=== PATIENT | female | born 1990 | race Caucasian/White ===

== ENCOUNTER 2017-03-21 21:01 | Emergency (ER) | payer MEDICAID ==
[2017-03-21] MEDS ORDERED: IBUPROFEN 600 MG TAB PO ONE (21:16)
[2017-03-21 21:20] VITALS: BP 135/82; PULSE 100; RESP 16; O2SAT 94
--- NOTE | 2017-03-21 21:26 | EDPHY ---
H & P Time Seen by Provider: 03/21/17 21:18 HPI/ROS: CHIEF COMPLAINT: Sore throat, left ear pain HISTORY OF PRESENT ILLNESS: Patient is a 27-year-old female with recurrent strep throat who presents to the emergency department with sore throat and left ear pain for the past 2 days. Her throat pain is worsening. Her pain is bilaterally. She describes it as moderate and worse when she swallows. She states she has foul-smelling breath. Patient denies any cough or shortness of breath. No fevers or chills. No neck pain. Patient describes left ear pain. There has been no discharge. No tenderness or hearing loss. REVIEW OF SYSTEMS: My complete review of systems is negative except as mentioned in the HPI. Past Medical/Surgical History: Includes previous strep throat Past surgical history: Negative Social history: The patient smokes Smoking Status: Former smoker Physical Exam: Vitals noted GENERAL: No acute distress, alert. HEENT: Eyes normal to inspection, no signs of dehydration. The patient has an erythematous posterior pharynx. There is also numerous small white lesions. Uvula is midline. No asymmetry or mass. Patient's TMs are negative bilaterally. NECK: [No thyromegaly, bilateral anterior lymphadenopathy, supple. RESPIRATORY: Clear to auscultation bilaterally, no rales, rhonchi or wheezing. CVS: Regular rate and rhythm, no rubs, murmurs, or gallops. ABDOMEN: Soft, nontender, nondistended, no organomegaly. BACK: Normal to inspection, no CVA tenderness. SKIN: Normal color, no rash, warm, dry. No pallor. EXTREMITIES: No pedal edema, nno joint swelling. NEURO/PSYCH: Alert and oriented, normal mood and affect, normal motor sensory exam. Constitutional: Initial Vital Signs Temperature (C) 36.6 C 03/21/17 21:17 Heart Rate 100 03/21/17 21:17 Respiratory Rate 16 03/21/17 21:17 Blood Pressure 135/82 H 03/21/17 21:17 O2 Sat (%) 94 03/21/17 21:17 O2 Delivery Mode Room Air Allergies/Adverse Reactions: No Known Allergies Allergy (Verified 03/21/17 21:15) Home Medications: Medication Instructions Recorded Amoxicillin/Clavulanate Pot 875 mg PO BID 10 Days tab 01/27/18 [Augmentin 875 mg tab] Medical Decision Making ED Course/Re-evaluation: In the emergency department I discussed possible etiologies with the patient. I answered all her questions. Based on the patient's recurrent strep pharyngitis and findings on physical exam she was given a prescription for Augmentin. She is instructed to take the entire course. She was given the 1st dose in the emergency department. She was also given ibuprofen 600 mg orally for pain. Patient was given warnings prior to leaving. She will return with worsening symptoms. Differential Diagnosis: My differential includes but is not limited to pharyngitis, strep pharyngitis, retropharyngeal abscess, peritonsillar abscess, tracheitis, epiglottitis, viral illness, otitis media, otitis externa, mastoiditis, bacteremia - Data Points Laboratory Results: 03/21/17 03/21/17 Unknown 21:10 Group A Strep Screen NEGATIVE (NEGATIVE) Group A Strep DNA Pending Departure - Departure Disposition: Home, Routine, Self-Care Clinical Impression: Acute pharyngitis Qualifiers: Pharyngitis/tonsillitis etiology: unspecified etiology Qualified Code(s): J02.9 - Acute pharyngitis, unspecified Condition: Good Instructions: Pharyngitis (ED) Additional Instructions: Take your entire course of antibiotics. Return with increasing sore throat, difficulty swallowing, shortness of breath or any other concerns. Referrals: Blane Rosales MD [[facility] [place] Primary Care Provider] - 5-7 days, if not improved
[2017-03-21] MEDS ORDERED: AMOXICILLIN/CLAVULANATE POT 875/125 MG TAB PO ONE (21:27)
[2017-03-21 21:51] VITALS: TEMP 98.2
== END 2017-03-21 21:49 | disposition home or self-care (01) ==
LOC: CED 21:01
DX: J02.9 Acute pharyngitis, unspecified (principal); Z87.891 Personal history of nicotine dependence
CPT/HCPCS: 87880-PO

== ENCOUNTER 2017-07-15 13:54 | Emergency (ER) | payer MEDICAID ==
--- NOTE | 2017-07-15 13:57 | EDPHY ---
H & P Time Seen by Provider: 07/15/17 13:56 HPI/ROS: HPI: This is a 27-year-old female who presents with Chief Complaint: Palpitations and chest pains after snorting gabapentin Location: chest Quality: Palpitations and chest pain Duration: 30 min to 1 hr prior to arrival Signs and Symptoms: no shortness of breath at rest, no shortness of breath on exertion, no cough, + anterior chest pain, + palpitations, no lower extremity edema, no wheezing, no orthopnea, no paroxysmal nocturnal dyspnea, no fever, no injury/trauma, no hemoptysis, no carpal pedal spasms Timing: Acute Severity: Moderate Context: Patient presents via EMS as she called them with concerns of her heart racing and anterior chest pain that was severe in nature. She reports that she became very anxious and scared. Prior to the symptoms starting she snorted gabapentin tablet at the urging of her friend. Denies any other recreational drug use or alcohol use. Patient reports that she has never snorted gabapentin in the past. She keeps complaining that she feels extremely anxious. No history of lung disease but does smoke cigarettes. Denies any epistaxis, nasal congestion, headache, dizziness, fever. Modifying Factors: None Comment: ROS: see HPI Constitutional: No fever, no chills, no weight loss Eyes: No blurred vision Respiratory: No shortness of breath, no cough Cardiovascular: + chest pain, + palpitations, no lower extremity edema Gastrointestinal: No nausea, no vomiting, no diarrhea Genitourinary: No dysuria Extremities: No myalgias Neurologic: No weakness, no numbness Skin: No rashes Hematologic: No bruising, no bleeding MEDICAL/SURGICAL/SOCIAL HISTORY: Medical history: History strep throat, Mirena IUD in place Surgical history: Denies Social history: Smoker. CONSTITUTIONAL: awake and alert, extremely anxious tearful adult white female, HEENT: Atraumatic and normocephalic, PERRL, EOMI. Nares patent; no rhinorrhea; no nasal mucosal edema. Tympanic membranes clear. Oropharynx clear, no exudate and moist pink mucosa. Airway patent. No lymphadenopathy. No meningismus. Cardiovascular: Normal S1/S2, mild tachycardia, regular rhythm, without murmur rub or gallop. PULMONARY/CHEST: Symmetrical and nontender. Clear to auscultation bilaterally. Good air movement. No accessory muscle usage. Mild tachypnea. ABDOMEN: Soft, nondistended, nontender, no rebound, no guarding, no peritoneal signs, no masses or organomegaly. No CVAT. EXTREMITIES: 2/2 pulses, strength 5/5, no deformities, no clubbing, no cyanosis or edema. NEUROLOGICAL: no focal neuro deficits. GCS 15. SKIN: Warm and dry, no erythema. no rash. Good capillary refill. Source: Patient Exam Limitations: No limitations - Medical/Surgical History Hx Asthma: No Hx Chronic Respiratory Disease: No Hx Diabetes: No Hx Cardiac Disease: No Hx Renal Disease: No Hx Cirrhosis: No Hx Alcoholism: No Hx HIV/AIDS: No Hx Splenectomy or Spleen Trauma: No Other PMH: strep throat - Social History Smoking Status: Former smoker Constitutional: Initial Vital Signs Temperature (C) 36.6 C 07/15/17 14:00 Heart Rate 114 H 07/15/17 14:00 Respiratory Rate 18 07/15/17 14:00 Blood Pressure 144/86 H 07/15/17 14:00 O2 Sat (%) 98 07/15/17 14:00 O2 Delivery Mode Room Air Allergies/Adverse Reactions: No Known Allergies Allergy (Verified 03/21/17 21:15) Home Medications: Medication Instructions Recorded NK [No Known Home Meds] 07/15/17 Medical Decision Making - Diagnostics EKG Interpretation: 12 lead EKG: Indication: Palpitation Rhythm: Sinus tachycardia, 100 beats per minute [place]: Normal Intervals: Normal QRS: Normal ST segments: Normal T-waves: Flat INTERPRETATION: Normal EKG The 12 lead EKG was interpreted by myself and with attending. ED Course/Re-evaluation: Placed on electronic device monitor upon arrival. EKG and urine drug screen ordered. Lung exam is benign and no signs of wheezing/respiratory distress. I do not believe that she needs a chest x-ray and she is low risk for pneumothorax. Patient given p.o. Ativan 1 mg. No signs of epistaxis. EKG shows no signs of arrhythmia, QT prolongation 1507: Reassessed patient. Sleeping soundly. Notified by nurse that patient reports that she intermittently uses methamphetamine as well. Patient is refusing to give a urine sample currently. 1605: Case management consult. They have arranged a Medicaid cab to get home. This patient was seen under the supervision of my secondary supervising physician. I evaluated care for this patient independently. Discussed this patient with Dr. Aviles who did not see the patient. Differential Diagnosis: Chest pain including but not limited to myocardial ischemia, pulmonary embolus, chest wall pain, pleural inflammation and pulmonary infectious causes. - Data Points Medications Given: Discontinued Medications Lorazepam (Ativan) 1 mg PO EDNOW ONE Stop: 07/15/17 14:03 Last Admin: 07/15/17 14:14 Dose: 1 mg Departure - Departure Disposition: Home, Routine, Self-Care Clinical Impression: Adverse effect of gabapentin Qualifiers: Encounter type: initial encounter Qualified Code(s): T42.6X5A - Adverse effect of other antiepileptic and sedative-hypnotic drugs, initial encounter Condition: Good Instructions: Gabapentin (By mouth) Additional Instructions: Please refrain from using illicit drugs or medications that are not prescribed to you. Referrals: Patient,NotPresent [Unknown] - As per Instructions
[2017-07-15] MEDS ORDERED: LORazepam 1 MG TAB PO ONE (14:02)
--- NOTE | 2017-07-15 14:21 | CPEKG ---
Heart Rate: 100 RR Interval: 600 P-R Interval: 132 QRSD Interval: 76 QT Interval: 356 QTC Interval: 460 P [place]: 78 QRS [place]: 59 T Wave [place]: 61 EKG Severity - BORDERLINE ECG - EKG Impression: SINUS TACHYCARDIA EKG Impression: BORDERLINE T ABNORMALITIES, ANT-LAT LEADS Electronically Signed By: Binu Aviles 15-Jul-2017 14:47:55
[2017-07-15 16:49] VITALS: BP 114/59
== END 2017-07-15 17:10 | disposition home or self-care (01) ==
LOC: EDUNIT#
DX: R06.82 Tachypnea, not elsewhere classified (principal); T42.6X5A Adverse effect of other antiepileptic and sedative-hypnotic drugs, initial encounter; Z87.891 Personal history of nicotine dependence